=== PATIENT | male | born 1995 | race Caucasian/White ===

== ENCOUNTER → 2016-07-11 06:21 | Day surgery (SDC) | payer BC ==
--- NOTE | 2016-07-06 22:24 | HP ---
ADMITTING HISTORY AND PHYSICAL: DATE OF ADMISSION: 07/11/16 ADMITTING DIAGNOSES: 1. Urethral stricture. 2. Partial urinary retention. PLANNED PROCEDURE: Internal urethrotomy and cystoscopy. SURGEON: Dr. Silver. ADMITTING HISTORY AND PHYSICAL: Sergio Angelo is a 20-year-old [employer] student, who initially had gross hematuria in December 2015, but did not have a workup at that time. He was recently evaluated for symptoms of urinary tract infection even though the culture was negative. He was noted to have partial urinary retention with a significant residual when initially evaluated of 415 cc and reduced urinary flow rate. This made me suspect a urethral stricture and a flexible cystoscopy on June 28 in my office revealed a severe stricture in the bulbar urethra with a pinpoint opening. He is now being brought in for internal urethrotomy and cystoscopy. PAST MEDICAL HISTORY: Unremarkable, specifically there is no history of diabetes mellitus or any other major systemic illness. PAST SURGICAL HISTORY: Negative. MEDICATIONS: On admission none. ALLERGIES: No known drug allergies. PHYSICAL EXAMINATION GENERAL: Reveals a pleasant healthy-appearing, young gentleman. VITAL SIGNS: Blood pressure is 108/80; pulse 67 per minute, regular; temperature 97.5; oxygen saturation 99% on room air. LUNGS: Clear bilaterally. CARDIOVASCULAR: Regular rate and rhythm. S1, S2. ABDOMEN: Soft with mildly distended bladder. GENITALIA: Testicles are descended bilaterally and are normal. IMPRESSION: A 20-year-old gentleman with a severe urethral stricture and partial urinary retention. PLAN: I have discussed the procedure in detail including possible risks of bleeding, infection, recurrence of stricture, and had a detailed discussion with Sergio and also with his father with his permission. CC: Jayshree Avila MD, [facility]; Dr. Silver * [id number]/[facility] #: [id number] [facility]
[~2016-07-11 06:21] MED LIST: Buffered Lidocaine 1% SYRIN* 3 ML/SYR SYRINGE INTRADERM ONE; DiMENhydriNATE IV* 50 MG/ML VIAL IV PUSH PRN; Furosemide IV* 10 MG/ML 2 ML VIAL (20 MG) ONE; Iohexol 180 (CONTRAST) 10 ML SDV IV ONE; Ketorolac INJ* 30 MG/ML 1 ML VIAL IV PRN; Ketorolac INJ* 30 MG/ML 1 ML VIAL ONE; Lidocaine 2% JELLY* 6 ML JELLY TOPICAL ONE; Lidocaine 2% PF* 5 ML VIAL ONE; Phenazopyridine TAB* 100 MG ONE; Propofol* 10 MG/ML 20 ML BTL IV PUSH ONE; cefTRIAXone(*) 2 GM ADDV.VIAL IVPB ONE; fentaNYL* 50 MCG/ML 2 ML VIAL (100 MCG VIAL) IV PRN; fentaNYL* 50 MCG/ML 2 ML VIAL (100 MCG VIAL) ONE; oxyCODONE/Acetamin 5/325 MG* TAB PO PRN
[2016-07-11 10:20] VITALS: BP 134/95
--- NOTE | 2016-07-11 15:26 | OP ---
DATE OF OPERATION: 07/11/16 [facility] DATE OF : 89 SURGEON: Andrae Silver MD. ANESTHESIOLOGIST: Dr. Cheek. ANESTHESIA: General. PRE-OP DIAGNOSES: 1. Urethral stricture. 2. Partial urinary retention. POST-OP DIAGNOSES: 1. Urethral stricture 2. Partial urinary retention. OPERATIVE PROCEDURE: Internal urethrotomy and cystoscopy. COMPLICATIONS: None. BLOOD LOSS: Minimal. OPERATIVE FINDINGS: 1. Severe stricture proximal bulbar urethra extending for about 1.5 to 2 cm, with normal appearing bladder (mild chronic inflammatory changes). 2. Few areas of hyperemic mucosa noted in the bladder wall, probably representing chronic inflammatory changes secondary to partial retention. POSTOPERATIVE CONDITION: Stable. CATHETER: A 20-Kittitian Norton. INDICATION: Sergio Angelo is a 20-year-old [employer] student with a history of voiding dysfunction and a history of hematuria about 6 months ago. He was noted to have significant post-void residual of up to 415 cc and a stricture noted on flexible cystoscopy. DESCRIPTION OF PROCEDURE: After induction of general anesthesia, the patient was placed in dorsal lithotomy position, sequential compression devices were in place and functioning. Initial cystoscopy revealed a normal anterior urethra. In the proximal bulbar urethra, there was a fairly severe stricture noted with a pinpoint opening. A guidewire was introduced through the pinpoint lumen proximally and then using an internal urethrotome, incision was made at the 12 o 'clock position. Once the stricture was opened up a little, I could visualize the rest of the lumen. The stricture extended proximally for about 1.5 to 2 cm. The remainder of the proximal urethra running through the prostate was unremarkable. The bladder was examined. The right and left ureteral orifices were normal in position and configuration. There were a few patchy areas of hyperemic mucosa in the bladder and there was one area above the right orifice which I initially thought may represent duplication and a second right orifice, but on further visualization, there was no efflux of urine noted and it was a little too far away from the main right orifice to be a true duplication. I suspect this is a just a pseudo-orifice with no connection to the ureter. Next, the internal urethrotome was reintroduced and I completed the internal urethrotomy. Care was taken to avoid any incision in the vicinity of the sphincter. Once the urethral stricture had been satisfactorily incised, a 20- [place] silicone Norton was introduced without difficulty and connected to a drainage bag. The patient tolerated the procedure satisfactorily and was transferred back to the recovery area in stable condition. CC: Jayshree Avila MD, [facility], [facility]; Andrae Silver MD* [id number]/[facility] #: [id number] MTDD
== END | disposition home or self-care (01) ==
LOC: OR 06:21
PROVIDERS: ATTEND Urology
DX: N35.8 Other urethral stricture (principal); R33.8 Other retention of urine
CPT/HCPCS: A9270-GY; J0696; J1580; J1885; J1940; J2704; J3010